=== PATIENT | male | born 2000 | race Caucasian/White ===

== ENCOUNTER 2023-12-30 07:49 | Emergency (ER) | payer OTHER, SELFPAY ==
[2023-12-30 07:51] VITALS: BP 124/88
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
--- NOTE | 2023-12-30 09:59 | ED.GENMED ---
History of Present Illness
General
Chief Complaint: Nose Bleed
Time Seen by Provider: 12/30/23 08:05
Past History
Past History
ED Past Medical History: None
ED Past Surgical History: Other (Tonsillectomy, septal surgery)
Patient has exhibited threatening behavior?: No
Social History
Tobacco: Non-smoker
Alcohol: None
Drug: None
Living: with family
Employment: Employed
Course
Vital Signs
Initial and Last Documented VS:
Initial Vital Signs
Temp Pulse BP Pulse Ox
97.9 F 69 124/88 98
12/30/23 07:51 12/30/23 07:51 12/30/23 07:51 12/30/23 07:51
Last Documented Vital Signs
Temp Pulse BP Pulse Ox
97.9 F 69 124/88 98
12/30/23 07:51 12/30/23 07:51 12/30/23 07:51 12/30/23 07:51
ED Attending Note
-
Portions of this chart may have been created with voice recognition software.� Occasional wrong word or��sound alike� substitutions may have occurred due to the inherent limitations of voice recognition software.
Discharge Plan
Departure
Patient Disposition: Home (Routine Discharge)
Date of Disposition: 12/30/23
Time of Disposition: 09:58
Patient with high blood pressure during this ER visit?: Yes
Condition: Good
Discharge Problem:
Acute anterior epistaxis
Instructions: Nosebleeds (DC), BLOOD PRESSURE
Referrals:
Shana Lynch MD [Active] - Follow up in 2-3 days
NONE,* [Family Provider] -
Activity Restrictions/Additional Instructions:
IF YOU DEVELOP RECURRENT BLEEDING, DIZZINESS, VOMITING, SEVERE HEADACHE, TROUBLE BREATHING, SWELLING, OR OTHER WORRISOME SIGNS, GO TO THE ER IMMEDIATELY!
Interventions
Interventions:
ED-EENT Assessment Last Done: 12/30/23 08:07
Discharge Date and Time
Print Language: PERSIAN
== END 2023-12-30 10:27 | disposition home or self-care (01) ==
LOC: EMR 07:49
PROVIDERS: EMERGENCY PHYSICIAN Emergency Medicine
DX: R04.0 Epistaxis (principal)
CPT/HCPCS: 99282; 30901

== ENCOUNTER 2023-12-30 23:32 | Emergency (ER) | payer OTHER, SELFPAY ==
[2023-12-30 23:48] VITALS: BP 130/90
[2023-12-31 02:05] VITALS: BMI 22.7
[2023-12-31 02:09] VITALS: BP 130/94
[2023-12-31] MEDS: NSS 1000 IV (04:51)
[2023-12-31] MEDS: MORPHINE SULFATE 4 MG IV (04:52)
[2023-12-31 04:59] LABS: % Basophils 0.4 % (0-2); % Immature Granulocytes 0.2 % (0-0.5); % Lymphocytes 32.1 % (20.5-51.1); % Monocytes 7.3 % (1.7-9.3); Absolute Eosinophils 0.1 10^3/uL (0-0.7); Absolute Lymphocytes 2.7 10^3/uL (1.2-3.4); Absolute Monocytes 0.6 10^3/uL (0.1-0.6); Absolute Neutrophils 4.9 10^3/uL (1.4-6.5); Hematocrit 41.4 % (39.0-52.0); Hemoglobin 13.7 g/dL (13.0-18.0); Mean Corp Hgb Conc. 33.1 g/dL (33.0-37.0); Mean Corpuscular Hgb 29.7 pg (27.0-31.0); Mean Corpuscular Volume 89.6 fL (80.0-94.0); Nucleated Red Blood Cells % 0 % (-); Platelet Count 224 10^3/uL (130-400); Red Blood Cell Count 4.62 10^6/uL (4.70-6.10); Red Cell Dist. Width 12.2 % (11.5-14.5); White Blood Cell Count 8.3 10^3/uL (4.8-10.8)
[2023-12-31 05:21] LABS: Blood Urea Nitrogen 19 mg/dl (9-20); Calcium 9.2 mg/dl (8.4-10.2); Carbon Dioxide 25 mmol/L (22-30); Chloride 107 mmol/L (98-107); Estimated Creatinine Clearance > 125 ml/min; Glucose 103 mg/dl (70-99); Potassium 4.3 mmol/L (3.5-5.1); Sodium 140 mmol/L (135-145); eGFR > 60.00
[2023-12-31 07:35] VITALS: BP 128/89
--- NOTE | 2023-12-31 07:43 | ED.GENMED ---
History of Present Illness
General
Chief Complaint: Nose Bleed
Source: patient, family (Mother who is at bedside) and previous hospital records (ED visit from yesterday for similar complaint)
Time Seen by Provider: 12/31/23 04:21
Nursing documentation reviewed up to this point in time: agreed with
History of Present Illness
History of Present Illness:
This is a 23-year-old male who underwent endoscopic sinus surgery 1 month ago November 24. He presented to this ED yesterday morning with complaints of significant bleeding from his right nostril that was unrelieved despite holding pressure to his nose
for 10 to 15 minutes. Right nostril Rhino Rocket was inserted and bleeding subsided initially but mild oozing intermittently and he was evaluated by ENT at the bedside, Dr. Darlene Lynch who recommended that Rhino Rocket remain in place and
patient was discharged to home without requiring antibiotics with plan to follow-up in her office on , January 01.
Patient returns tonight with complaints of bloody oozing about the Rhino Rocket and blood dripping down the back of his throat. He notes moderate generalized sinus pain and he has been sneezing intermittently but has not had a fever. No dizziness
nor lightheadedness but does admit to generalized fatigue. Mild intermittent nausea but has had no vomiting.
He takes no anticoagulants.
Past History
Past History
ED Past Medical History: None
ED Past Surgical History: Other (Tonsillectomy, septal surgery)
Patient has exhibited threatening behavior?: No
Social History
Tobacco: Non-smoker
Alcohol: None
Drug: None
Personal: Single
Living: with family
Employment: Employed
Family History
Family History: Other (Noncontributory)
Phy Exam
Physical Exam
Physical Exam:
GENERAL: 23-year-old male appears his stated age, awake and alert, mildly anxious, intermittently spitting thin blood-tinged fluid into a bucket. There is minimal oozing of blood around Rhino Rocket right nostril.
EYE: pupils equal and reactive. anicteric
NECK: Supple, nontender, no meningismus, no significant adenopathy.
ENT: Scant blood streaking posteriorly, oral mucosa is moist. TM clear b/l, Rhino Rocket in place right nostril with scant blood intermittently oozing from the right nostril. Additional 0.5 cc of air instilled to Rhino Rocket with prompt resolution
of bleeding. There is scant blood at the left nostril sam otherwise left nasal passages clear.
CARDIAC: Regular rate and rhythm. no murmur.
LUNGS: Clear breath sounds bilaterally, no acute respiratory distress, no wheezes/rales/rhonchi
ABDOMEN: Soft, nondistended, without focal tenderness, normoactive BS.
NEUROLOGICAL: Alert and oriented x3, no focal neuro deficits.
SKIN: Warm and dry, normal color, skin intact. No rash.
MUSCULOSKELETAL: No C/C/E. peripheral pulses are full and equal b/l. No palpable tenderness.
PSYCH: Mildly anxious. Cooperative.
Course
Orders/Labs/Results
Orders:
Orders
12/31/23 04:38
0.9% Sodium Chloride 1000 ml [Nss] 1,000 ml IV BOLUS
Morphine Sulfate 4 mg IV NOW STA
12/31/23 04:44
Basic Metabolic Panel Urgent
Complete Blood Count/With Diff Urgent
Abnormal Lab Results
12/31/23
04:44
RBC 4.62 L 10^6/uL
(4.70-6.10)
Glucose 103 H mg/dl
(70-99)
12/31/23 04:44
12/31/23 04:44
Vital Signs
Initial and Last Documented VS:
Initial Vital Signs
Temp Pulse Resp BP Pulse Ox
98.2 F 66 18 130/90 98
12/30/23 23:48 12/30/23 23:48 12/30/23 23:48 12/30/23 23:48 12/30/23 23:48
Last Documented Vital Signs
Temp Pulse Resp BP Pulse Ox
98.2 F 61 16 128/89 100
12/30/23 23:48 12/31/23 07:35 12/31/23 07:35 12/31/23 07:35 12/31/23 07:35
MDM/Problems Addressed
Differential Diagnosis Includes:
Recurrent bleeding from right nostril around Rhino Rocket in place.
With small amount of additional air inserted and the Rhino Rocket bleeding has subsided.
Mother concerned about the amount of bleeding that has occurred over the past few days especially yesterday and today.
Overall appears euvolemic and remains hemodynamically stable but will initiate IV fluids and check CBC, BMP and will medicate for pain with a small dose of IV morphine and continue to observe for recurrent bleeding.
Chronic conditions affecting care: Other (Previous sinus surgery 1 month ago)
*Pulse Oximetry
Patient hypoxic: no
*Cake Wrapper Interpretation
Rate: normal
Interpretation: normal
Rhythm: sinus
*Critical Care Note
Total Time (30-74mins, 75-104mins- exclusive of procedures): Not Applicable
Update Note
Update Note:
There has been no return of bleeding during ED observation.
Patient is resting comfortably and reports significant relief of discomfort after IV dose of morphine.
Labs are unremarkable, normal CBC as well as chemistries.
He remains hemodynamically stable.
Will discharge to home with Rhino Rocket in place along with a small prescription for Vicodin for as needed pain.
Discussed importance of rest, elevating head of bed and avoid strenuous activity. Apparently attempted to go to work yesterday.
Follow-up with ENT, Dr. Lynch in 2 days time as already scheduled.
I have sent a [place] text to Dr. Lynch informing her of patient's return ED visit and plan of care.
Return precautions discussed.
ED Attending Note
-
Portions of this chart may have been created with voice recognition software.� Occasional wrong word or��sound alike� substitutions may have occurred due to the inherent limitations of voice recognition software.
Discharge Plan
Departure
Patient Disposition: Home (Routine Discharge)
Date of Disposition: 12/31/23
Time of Disposition: 07:43
Patient with high blood pressure during this ER visit?: No
Condition: Good
Discharge Problem:
Epistaxis, recurrent
Instructions: Nosebleeds (DC)
Prescriptions:
New
hydrocodone-acetaminophen 5-300 mg tablet
1 tab PO Q8H PRN (Reason: Pain) Qty: 10 0RF
Referrals:
Shana Lynch MD [Family Provider] - Keep scheduled appt
Interventions
Interventions:
*Risk Screen - Suicide Last Done: 12/30/23 23:48
*General Assessment Last Done: 12/31/23 02:05
*Neglect/Abuse Screening Last Done: 12/30/23 23:48
ED- Fall Risk Assessment Last Done: 12/31/23 02:05
*ED COVID-19 Vaccine History Last Done: 12/31/23 02:05
ED-EENT Assessment Last Done: 12/31/23 02:05
Discharge Date and Time
Print Language: [place]
[2023-12-31 08:10] VITALS: BP 125/85
== END 2023-12-31 08:11 | disposition home or self-care (01) ==
LOC: EMR 23:32
PROVIDERS: EMERGENCY PHYSICIAN Emergency Medicine; FAMILY PHYSICIAN Otolaryngology
DX: R04.0 Epistaxis (principal)
CPT/HCPCS: 99284; 96374; 96361; 80048; 85025